=== PATIENT | female | born 1985 | race Caucasian/White ===

== ENCOUNTER → 2023-05-23 | Outpatient (CLI) | payer OTHER, SELFPAY ==
--- NOTE | 2023-05-23 08:04 | CT_ITS ---
STUDY: CT ABDOMEN WITH CONTRAST REASON FOR EXAM: Female, 37 years old. HX OF PANCREATIC MASS RADIATION DOSAGE (If Supplied By Facility): CTDIvol = ( 14.71 ) mGy, DLP = ( 457.55 ) mGycm TECHNIQUE: Transaxial images were obtained post I.V. administration of Oral and amp; IV Readi-CAT and amp; 100mL Isovue-300, and with oral contrast. Sagittal and coronal images were reconstructed. Individualized dose optimization techniques were used for this CT. COMPARISON: None. FINDINGS: The visualized lung bases are unremarkable. The visualized portions of the heart are within normal limits. Normal liver. Normal gallbladder and extrahepatic biliary system. 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 Resection of the body and tail of the pancreas. Normal bilateral adrenal glands. Normal right kidney. 2 mm nonobstructing stone in the mid/left kidney. No hydronephrosis, ureteral stone or ureteral dilatation. Normal visualized stomach. Normal small intestine. Large amount of stool throughout the colon suggestive of constipation. The appendix is visualized and appears normal. Normal abdominal aorta. Normal inferior vena cava. Normal retroperitoneum. There is a right-sided inguinal hernia containing adipose tissue. Normal osseous structures. CT/Abdomen WITH IV Contrast IMPRESSION: 1. 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 2. Suspect constipation. Electronically Signed: Sridhar Cook MD at 22:29 EDT ,
[2023-05-23 08:41] LABS: CREATININE FINGERSTICK < 0.9 mg/dL (0.55-1.02); EGFR FINGERSTICK > 60.0000 mL/min (>60)
== END | disposition home or self-care (01) ==
PROVIDERS: PCP Nurse Practitioner Family; Referring Provider Nurse Practitioner Family; Visit Provider Nurse Practitioner Family
DX: D13.6 Benign neoplasm of pancreas (principal)
CPT/HCPCS: 74160; Q9967